=== PATIENT | male | born 1995 ===

== ENCOUNTER 2023-02-20 23:52 | Emergency (ER) | payer OTHER ==
[~2023-02-20] VITALS: Ht 165 cm; Wt 68.0 kg
--- NOTE | 2023-02-21 | ED General ---
General Chief Complaint: Substance Abuse Stated Complaint: ETOH INTOXICATION Source of Information: EMS Exam Limitations: Intoxication History of Present Illness Date Seen by Provider: Feb 21, 2023 Time Seen by Provider: 00:00 Initial Comments Patient is a 27yo male to the [facility] - chief complaint vomiting and intoxication. Patient is quite sleepy - rouses briefly to sternal rub. VSS. Has NS running pre-hospital. He is able to say his name. Is chilling with the cold NS running wide open. Abdomen is soft, hypoactive BS. Heart is regular. Lungs clear. Per EMS he vomited about 500ml. He is not able (due to intoxication) to give ROS, HPI PMH Timing/Duration: 1-3 Hours Severity: Severe Associated Systoms: Nausea/Vomiting (per EMS) Allergies and Home Medications Allergies Coded Allergies: No Allergy Information Available (Unverified , 02/20/23) PT INTOXICATED Patient Home Medication List Home Medication List Reviewed: Yes Review of Systems Review of Systems Constitutional: see HPI unobtainable due to intoxication Physical Exam Vital Signs Vital Signs - First Documented 02/20/23 23:52 Temp 34.7 Pulse 94 Resp 12 B/P (MAP) 113/64 (80) Pulse Ox 96 O2 Delivery Room Air Capillary Refill : Height, Weight, BMI Height: '" Weight: lbs. oz. kg; BMI Method: General Appearance: No Apparent Distress, WD/WN, Other (somnolent) Eyes: Bilateral Eye Normal Inspection, Bilateral Eye PERRL Respiratory: Lungs Clear, Normal Breath Sounds, No Accessory Muscle Use, No Respiratory Distress Cardiovascular: Regular Rate, Rhythm Gastrointestinal: Non Tender, Soft Neurologic/Psychiatric: Other (somnolent but rousable to sternal rub) Skin: Normal Color, Warm/Dry Progress/Results/Core Measures Suspected Sepsis SIRS Temperature: Pulse: Respiratory Rate: Blood Pressure / Mean: Results/Orders My Orders Orders - AURORA WARD MD Ed Iv/Invasive Line Start (02/21/23 00:07) Lactated Ringers 1,000 Ml (Lactated Ring (02/21/23 00:15) Ondansetron Injection (Ondansetron Inj (02/21/23 00:15) Medications Given in ED Current Medications Medications Dose Ordered Sig/Jenifer Route Start Time Stop Time Status Last Admin Dose Admin Ondansetron HCl 8 mg ONCE ONCE IVP 02/21/23 00:15 02/21/23 00:16 DC 02/21/23 00:13 8 MG Vital Signs/I&O 02/20/23 23:52 Temp 34.7 Pulse 94 Resp 12 B/P (MAP) 113/64 (80) Pulse Ox 96 O2 Delivery Room Air Capillary Refill : Progress Note : Time: 00:50 Progress Note Notified by the patient's nurse that he is up and walking to the bathroom. Patient seen and evaluated by me. Evaluation today includes physical exam. Pertinent physical exam findings well-developed well-nourished male, somnolent/sleeping. Minimally arousable with sternal rub. Pupils equal. Mucous membranes moist. Heart regular. Lungs clear. Abdomen nondistended. No obvious outward signs of trauma. Differential diagnosis includes alcohol intoxication, toxic effect of other illicit substances Patient is treated in the emergency department with 8 mg of IV Zofran. He completed a liter of normal saline per EMS and an additional liter of lactated Ringer's was ordered. He was allowed to rest while being monitored in the emergency room, no deterioration in his condition throughout his stay. As stated above now up and ambulatory to the bathroom. When reassessed the patient is alert and oriented. States he hurts "everywhere" but is appropriate, smiling, interactive. I reiterated discharge instructions to his friend who is at the bedside. Recommended increased water intake over the next 12 hours. Return precautions provided all questions are sought and answered. Patient is improved at discharge Departure Impression Primary Impression: Alcohol intoxication Qualified Codes: F10.920 - Alcohol use, unspecified with intoxication, uncomplicated Disposition: 01 HOME, SELF-CARE Condition: Improved Departure-Patient Inst. Decision time for Depature: 01:06 Patient Instructions: Alcohol Intoxication ED Add. Discharge Instructions: Drink lots of water over the next 12 hours, electrolyte replacement, Pedialyte. [id number] ibuprofen 2 to 3 tablets every 6 hours with food as needed for headache, body aches. Return to the emergency department for any new, concerning or emergent complaints. AURORA WARD MD Feb 21, 2023 00:00
[2023-02-21] MEDS ORDERED: LACTATED RINGERS 1,000 ML 1,000 ML IV SCH (00:15)
[2023-02-21] MEDS ORDERED: ONDANSETRON INJECTION 4 MG/2 ML (SDV) IVP ONE (00:15)
[2023-02-21 01:08] VITALS: BP 116/71
== END 2023-02-21 01:10 | disposition home or self-care (01) ==
LOC: ER 23:57
DX: F10.129 Alcohol abuse with intoxication, unspecified (principal)